=== PATIENT | male | born 1980 | race American Indian/Alaskan Native ===

== ENCOUNTER 2017-05-02 19:45 | Emergency (ER) | payer SELFPAY ==
[2017-05-02 20:42] LABS: Basophils % (Auto) 0.9 % (0.0-1.8); Eosinophils % (Auto) 1.3 % (0.0-4.3); Hematocrit 42.5 % (35.5-45.6); Mean Corpuscular HGB Conc 35 % (32-34); Mean Corpuscular Hemoglobin 36 pg (28-32); Mean Corpuscular Volume 101 fl (84-94); Platelet Count 261 K/mm3 (140-440); Red Blood Count 4.22 M/mm3 (3.65-5.03); Red Cell Distribution Width 13.4 % (13.2-15.2); White Blood Count 9.5 K/mm3 (4.5-11.0)
[2017-05-02 20:50] LABS: Alanine Aminotransferase 17 units/L (7-56); Albumin 3.5 g/dL (3.9-5); Albumin/Globulin Ratio 1.5 %; Alkaline Phosphatase 66 units/L (35-129); Anion Gap 16 mmol/L; BUN/Creatinine Ratio 12; Blood Urea Nitrogen 12 mg/dL (9-20); Calcium 8.5 mg/dL (8.4-10.2); Carbon Dioxide 28 mmol/L (22-30); Chloride 103.6 mmol/L (98-107); Glucose 95 mg/dL (75-100); Lipase 36 units/L (13-60); Potassium 3.9 mmol/L (3.6-5.0); Sodium 144 mmol/L (137-145); Total Protein 5.9 g/dL (6.3-8.2)
[2017-05-02 21:29] LABS: Bilirubin,Urine NEG (Negative); Blood,Urine NEG (Negative); Ketones,Urine NEG (Negative); Leukocyte Esterase,Urine NEG (Negative); Mucus,Urine FEW /HPF; Nitrite,Urine NEG (Negative); Protein,Urine <15 mg/dL mg/dL (Negative)
[2017-05-02 21:30] LABS: RBC,Urine < 1.0 /HPF (0.0-6.0)
--- NOTE | 2017-05-03 03:22 | Emergency Department Report ---
HPI - General Chief Complaint: Abdominal Pain Time Seen by Provider: 05/03/17 02:14 - HPI HPI: This is a 36-year-old male presents to the emergency department with complaint of some upper abdominal pain that started earlier this afternoon. It is associated with some nausea without vomiting. He has not taken anything for his symptoms prior to presentation. He was on his way to work when the abdomen started hurting so he walked here to be seen. He has a history of alcohol use but denies any this evening. He has a history of pancreatitis, hypertension. He has not had a primary care physician. No recent travel or sick contacts at home. ED Past Medical Hx - Past Medical History Hx Hypertension: Yes Hx Congestive Heart Failure: No Hx Diabetes: No Hx Asthma: No Hx COPD: No Additional medical history: "Nose bleeds", Pancreatitis - Social History Smoking Status: Current Every Day Smoker Substance Use Type: Alcohol - Medications Home Medications: Home Medications Medication Instructions Recorded Confirmed Last Taken Type Nicotine [Habitrol] 21 mg TD Q24H #15 patch 06/20/16 Unknown Rx Pantoprazole [Protonix TAB] 40 mg PO DAILY #15 tablet 06/20/16 Unknown Rx oxyCODONE /ACETAMINOPHEN [Percocet 1 tab PO Q4H PRN #30 tablet 06/20/16 Unknown Rx 5/325 mg] HYDROcodone/APAP 5-325 [[place] 1 each PO Q6HR PRN #8 tablet 05/03/17 Unknown Rx 5/325] ED Review of Systems ROS: Stated complaint: ABD PAIN Other details as noted in HPI Comment: All other systems reviewed and negative Constitutional: denies: chills, fever Eyes: denies: eye pain, eye discharge, vision change ENT: denies: ear pain, throat pain Respiratory: denies: cough, shortness of breath, wheezing Cardiovascular: denies: chest pain, palpitations Gastrointestinal: abdominal pain, nausea Genitourinary: denies: urgency, dysuria Musculoskeletal: denies: back pain, joint swelling, arthralgia Skin: denies: rash, lesions Neurological: denies: headache, weakness, paresthesias Physical Exam - Physical Exam Vital Signs: Vital Signs 05/02/17 05/02/17 20:08 20:11 Temperature 98.2 F 98.2 F Pulse Rate 102 H 103 H Respiratory 18 18 Rate Blood Pressure 126/86 126/86 O2 Sat by Pulse 99 99 Oximetry Physical Exam: GENERAL: The patient is well-developed well-nourished. HENT: Normocephalic. Atraumatic. Patient has moist mucous membranes. EYES: Extraocular motions are intact. Pupils equal reactive to light bilaterally. NECK: Supple. Trachea is midline. CHEST/LUNGS: Clear to auscultation. There is no respiratory distress noted. HEART/CARDIOVASCULAR: Regular. There is no tachycardia. There is no gallop rub or murmur. ABDOMEN: Abdomen is soft. There is some tenderness palpation to the upper quadrants of the abdomen. No guarding or rebound tenderness. Patient has normal bowel sounds. There is no abdominal distention. SKIN: Skin is warm and dry. NEURO: The patient is awake, alert, and oriented. The patient is cooperative. The patient has no focal neurologic deficits. The patient has normal speech. MUSCULOSKELETAL: There is no tenderness or deformity. There is no limitation range of motion. There is no evidence of acute injury. ED Course Vital Signs 05/02/17 05/02/17 20:08 20:11 Temperature 98.2 F 98.2 F Pulse Rate 102 H 103 H Respiratory 18 18 Rate Blood Pressure 126/86 126/86 O2 Sat by Pulse 99 99 Oximetry ED Medical Decision Making - Lab Data Result diagrams: 05/02/17 20:16 05/02/17 20:16 - Radiology Data Radiology results: report reviewed, image reviewed interpreted by me: Abdominal x-ray shows some nonspecific nonobstructive bowel gas. PROCEDURE: US ABDOMEN LIMITED TECHNIQUE: Real-time sonography in multiple planes of the gallbladder fossa and CBD with imaging of the adjacent liver, pancreas, and right kidney was performed with image documentation. CPT 16854 HISTORY: upper abd pain, hx of pancreatitis COMPARISON: No prior studies are available for comparison. FINDINGS: Liver: Normal size and echotexture with no evidence of cystic or solid mass lesion. Gallbladder: Fluid filled. No gallstones, wall thickening, pericholecystic fluid, or sonographic Solano's sign . Intrahepatic bile ducts: Normal . Extrahepatic bile ducts: Normal . Pancreas: Normal as visualized with suboptimal depiction of the pancreatic tail. Right kidney: Normal echotexture. No focal renal mass, calculus, or hydronephrosis. Other: No free fluid. IMPRESSION: Normal Examination - Medical Decision Making 36-year-old male presents with some abdominal pain to the upper abdomen that started earlier this afternoon. No nausea, vomiting, problems with bowel or bladder. Vital signs stable including being afebrile. Labs are unremarkable including normal lipase, bilirubin and LFTs. Abdominal x-ray shows nonspecific nonobstructive bowel gas. Upper abdominal ultrasound does not show any signs of cholecystitis, cholelithiasis and what is seen of the pancreas does not show any pancreatitis. He is seen resting comfortably each time he is reevaluated. He appears safe for discharge home at this time. He'll be given referrals for gastroenterology and encouraged to follow up with primary care. He will return to the ER with any worsening of his symptoms are any acute distress. - Differential Diagnosis cholecystitis, cholelithiasis, pancreatitis, gastritis Critical Care Time: No Critical care attestation.: If time is entered above; I have spent that time in minutes in the direct care of this critically ill patient, excluding procedure time. ED Disposition Clinical Impression: Abdominal pain Qualifiers: Abdominal location: upper abdomen, unspecified Qualified Code(s): R10.10 - Upper abdominal pain, unspecified Disposition: DC-01 TO HOME OR SELFCARE Is pt being admited?: No Condition: Stable Instructions: Abdominal Pain (ED) Additional Instructions: Please follow-up with your primary care physician in the next few days. I have given you a referral for a local cigar roller, Dr. Rogers, in case she would like to follow up regarding her abdominal pain. Return to the emergency Department with any worsening of your symptoms or any acute distress. You have been prescribed a medication that is sedating and therefore should not be taken prior to driving, working, and responsible for children and in no way should be mixed with alcohol of any quantity. Prescriptions: HYDROcodone/APAP 5-325 [[place] 5/325] 1 each PO Q6HR PRN #8 tablet PRN Reason: Pain Referrals: PRIMARY CAREMD [Primary Care Provider] - 3-5 Days TOMMIE ROGERS MD [Staff Physician] - 3-5 Days Time of Disposition: 04:52
--- NOTE | 2017-05-03 04:02 | Ultrasound Report ---
FINAL REPORT PROCEDURE: US ABDOMEN LIMITED TECHNIQUE: Real-time sonography in multiple planes of the gallbladder fossa and CBD with imaging of the adjacent liver, pancreas, and right kidney was performed with image documentation. CPT 48313 HISTORY: upper abd pain, hx of pancreatitis COMPARISON: No prior studies are available for comparison. FINDINGS: Liver: Normal size and echotexture with no evidence of cystic or solid mass lesion. Gallbladder: Fluid filled. No gallstones, wall thickening, pericholecystic fluid, or sonographic Solano's sign . Intrahepatic bile ducts: Normal . Extrahepatic bile ducts: Normal . Pancreas: Normal as visualized with suboptimal depiction of the pancreatic tail. Right kidney: Normal echotexture. No focal renal mass, calculus, or hydronephrosis. Other: No free fluid. IMPRESSION: Normal Examination
[2017-05-03] MEDS ORDERED: MOTRIN PO ONE (04:20)
[2017-05-03 05:11] VITALS: BP 129/74
--- NOTE | 2017-05-03 07:14 | XRay Report ---
Abdomen 2 views: History: Abdominal pain. Findings: Stool in colon. No bowel distention or wall thickening. No radiopaque calculus or abnormal calcification. Impression: Essentially negative abdomen.
== END 2017-05-03 05:10 | disposition home or self-care (01) ==
LOC: ED 19:45
DX: R11.0 Nausea (principal); R10.10 Upper abdominal pain, unspecified; I10 Essential (primary) hypertension; F17.210 Nicotine dependence, cigarettes, uncomplicated
CPT/HCPCS: 36415; 74020; 76705; 80053; 81001; 83690; 85025; 99284; G0480; 80320

== ENCOUNTER 2019-12-05 21:04 | Emergency (ER) | payer SELFPAY ==
[2019-12-05 22:13] LABS: Basophils % (Auto) 0.5 % (0.0-1.8); Eosinophils # (Auto) 0.1 K/mm3 (0.0-0.4); Eosinophils % (Auto) 1.8 % (0.0-4.3); Hematocrit 41.6 % (35.5-45.6); Hemoglobin 13.9 gm/dl (11.8-15.2); Lymphocytes # (Auto) 1.8 K/mm3 (1.2-5.4); Lymphocytes % (Auto) 22.1 % (13.4-35.0); Mean Corpuscular HGB Conc 33 % (32-34); Mean Corpuscular Volume 107 fl (84-94); Monocytes # (Auto) 0.8 K/mm3 (0.0-0.8); Monocytes % (Auto) 9.2 % (0.0-7.3); Platelet Count 230 K/mm3 (140-440); Red Blood Count 3.88 M/mm3 (3.65-5.03); Red Cell Distribution Width 13.2 % (13.2-15.2)
[2019-12-05 22:32] LABS: BUN/Creatinine Ratio 11; Blood Urea Nitrogen 11 mg/dL (9-20); Calcium 9.9 mg/dL (8.4-10.2); Hemolysis Index 15
--- NOTE | 2019-12-05 22:47 | XRay Report ---
CHEST 2 VIEWS, 12/05/2019 9:37 PM INDICATION: Chest pain COMPARISON: None FINDINGS: Support devices: None. Heart: The heart is normal in size. Lungs/pleura: The lungs are well expanded and appear clear of focal airspace disease or significant p leural effusion. Additional findings: Evaluation of bony structures demonstrates no evidence of acute bony abnormality . IMPRESSION: 1. No evidence of acute cardiopulmonary process. Signer Name: Lima Fernnado MD Signed: 12/05/2019 10:42 PM Workstation Name: [id number]
[2019-12-05] MEDS ORDERED: ALBUTEROL 2.5 MG/3 ML NEBU IH ONE (23:50)
[2019-12-05] MEDS ORDERED: IBUPROFEN 800 MG TAB PO ONE (23:50)
[2019-12-05] MEDS ORDERED: predniSONE 20 MG TAB PO ONE (23:50)
--- NOTE | 2019-12-05 23:55 | Emergency Department Report ---
ED Chest Pain HPI - General Chief Complaint: Chest Pain Stated Complaint: TROUBLE BREATHING SHARP CHEST PAIN COUGH Time Seen by Provider: 12/05/19 23:48 Source: patient Mode of arrival: Ambulatory Limitations: No Limitations - History of Present Illness Initial Comments: Mrs. Strickland is a 39-year-old -[place] male who presents for cough productive of white thick x1 week. States now with chest wall pain with cough that is described as 4/10 reproducible. With intermittent shortness of breath and wheezing. He denies history of asthma. He denies sick contacts., Symptoms are exacerbated by environmental exposure. Symptoms are relieved by nothing tried. MD Complaint: chest pain, other (cough productive ) Onset/Timin -: week(s) Onset: during exertion Pain Location: left chest, right chest Pain Radiation: none Severity: moderate Severity scale (0 -10): 4 Quality: tightness, sharp Consistency: intermittent Improves With: nothing Worsens With: inspiration, movement, other (cough) re: denies: nausea, vomting Other Symptoms: cough. denies: fever, syncope Treatments Prior to Arrival: none - Related Data Previous Rx's Medication Instructions Recorded Last Taken Type Nicotine [Habitrol] 21 mg TD Q24H #15 patch 06/20/16 Unknown Rx Pantoprazole [Protonix TAB] 40 mg PO DAILY #15 tablet 06/20/16 Unknown Rx oxyCODONE /ACETAMINOPHEN [Percocet 1 tab PO Q4H PRN #30 tablet 06/20/16 Unknown Rx 5/325 mg] HYDROcodone/APAP 5-325 [[place] 1 each PO Q6HR PRN #8 tablet 05/03/17 Unknown Rx 5/325] traMADoL [Ultram] 50 mg PO Q6HR PRN #7 tablet 09/27/19 Unknown Rx Albuterol INH(or & Nicu Only) 2 puff IH QID PRN #8.5 gram 12/06/19 Unknown Rx [ProAir HFA Inhaler] Azithromycin [Zithromax Z-ANGEL] 250 mg PO DAILY #6 tab 12/06/19 Unknown Rx Benzonatate [Tessalon Perles] 100 mg PO Q8HR PRN #30 capsule 12/06/19 Unknown Rx Ibuprofen [Motrin 800 MG tab] 800 mg PO Q8HR PRN #30 tablet 12/06/19 Unknown Rx predniSONE [Deltasone] 40 mg PO DAILY 5 Days #10 tablet 12/06/19 Unknown Rx Allergies Allergy/AdvReac Type Severity Reaction Status Date / Time venom-honey bee Allergy Angioedema Verified 05/05/16 14:26 [bee venom (honey bee)] Heart Score - HEART Score History: Slightly suspicious EKG: Normal Age: < 45 Risk factors: No known risk factors Troponin: < normal limit HEART Score: 0 ED Review of Systems ROS: Stated complaint: TROUBLE BREATHING SHARP CHEST PAIN COUGH Other details as noted in HPI Constitutional: denies: chills, fever Eyes: denies: eye pain, eye discharge, vision change ENT: congestion. denies: ear pain, throat pain Respiratory: cough, shortness of breath, wheezing Cardiovascular: chest pain Endocrine: no symptoms reported Gastrointestinal: denies: abdominal pain, nausea, vomiting, diarrhea Genitourinary: denies: urgency, dysuria Musculoskeletal: denies: back pain, joint swelling, arthralgia Skin: denies: rash, lesions Neurological: denies: headache, weakness, paresthesias Psychiatric: denies: anxiety, depression Hematological/Lymphatic: denies: easy bleeding, easy bruising ED Past Medical Hx - Past Medical History Hx Hypertension: Yes Hx Congestive Heart Failure: No Hx Diabetes: No Hx Asthma: No Hx COPD: No Additional medical history: "Nose bleeds", Pancreatitis, DVT right arm - Social History Smoking Status: Current Every Day Smoker Substance Use Type: Marijuana - Medications Home Medications: Home Medications Medication Instructions Recorded Confirmed Last Taken Type Nicotine [Habitrol] 21 mg TD Q24H #15 patch 06/20/16 Unknown Rx Pantoprazole [Protonix TAB] 40 mg PO DAILY #15 tablet 06/20/16 Unknown Rx oxyCODONE /ACETAMINOPHEN [Percocet 1 tab PO Q4H PRN #30 tablet 06/20/16 Unknown Rx 5/325 mg] HYDROcodone/APAP 5-325 [[place] 1 each PO Q6HR PRN #8 tablet 05/03/17 Unknown Rx 5/325] traMADoL [Ultram] 50 mg PO Q6HR PRN #7 tablet 09/27/19 Unknown Rx Albuterol INH(or & Nicu Only) 2 puff IH QID PRN #8.5 gram 12/06/19 Unknown Rx [ProAir HFA Inhaler] Azithromycin [Zithromax Z-ANGEL] 250 mg PO DAILY #6 tab 12/06/19 Unknown Rx Benzonatate [Tessalon Perles] 100 mg PO Q8HR PRN #30 capsule 12/06/19 Unknown Rx Ibuprofen [Motrin 800 MG tab] 800 mg PO Q8HR PRN #30 tablet 12/06/19 Unknown Rx predniSONE [Deltasone] 40 mg PO DAILY 5 Days #10 tablet 12/06/19 Unknown Rx ED Physical Exam - General Limitations: No Limitations General appearance: alert, in no apparent distress - Head Head exam: Present: atraumatic, normocephalic - Eye Eye exam: Present: normal appearance, EOMI Pupils: Present: normal accommodation - ENT ENT exam: Present: mucous membranes moist - Neck Neck exam: Present: normal inspection, full ROM. Absent: tenderness - Respiratory Respiratory exam: Present: normal lung sounds bilaterally, wheezes, chest wall tenderness (anterior chest wall ). Absent: respiratory distress, rales, rhonchi, stridor, prolonged expiratory - Cardiovascular Cardiovascular Exam: Present: regular rate, normal heart sounds - GI/Abdominal GI/Abdominal exam: Present: soft, normal bowel sounds. Absent: distended, te nderness, bruit, hernia - Rectal Rectal exam: Present: deferred - Extremities Exam Extremities exam: Present: normal inspection, full ROM, normal capillary refill. Absent: tenderness - Back Exam Back exam: Present: normal inspection, full ROM. Absent: tenderness, CVA tenderness (R), CVA tenderness (L) - Neurological Exam Neurological exam: Present: alert, oriented X3, CN II-XII intact, normal gait, reflexes normal - Psychiatric Psychiatric exam: Present: normal affect, normal mood - Skin Skin exam: Present: warm, dry, intact, normal color. Absent: rash ED Course Vital Signs 12/06/19 00:37 Pulse Rate [ 70 Bilateral] Respiratory 20 Rate [Bilateral ] MANUEL score - Manuel Score Age > 65: (0) No Aspirin use within the Past 7 Days: (0) No 3 or more CAD Risk Factors: (0) No 2 or more Angina events in past 24 hrs: (0) No Known CAD with more than 50% Stenosis: (0) No Elevated Cardiac Markers: (0) No ST Deviation Greater than 0.5mm: (0) No MANUEL Score: 0 ED Medical Decision Making - Lab Data Result diagrams: 12/05/19 21:54 12/05/19 21:54 - EKG Data EKG shows normal: sinus rhythm Rate: normal - EKG Data When compared to previous EKG there are: previous EKG unavailable Interpretation: nonspecific ST-T wave billy NSR nonspecific ST changes, ? pericarditis, no ST Elevated MN, ekg interp by ed Attending. 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 Heart: The heart is normal in size. Lungs/pleura: The lungs are well expanded and appear clear of focal airspace disease or significant pleural effusion. Additional findings: Evaluation of bony structures demonstrates no evidence of acute bony abnormality. IMPRESSION: 1. No evidence of acute cardiopulmonary process. Signer Name: Lima Fernando MD Signed: 12/05/2019 9:42 PM Workstation Name: [id number] - Medical Decision Making This is bronchitis versus CAP. Plan NSAIDs PRN chest wall pain, albuterol, prednisone, azithromycin patient will follow-up with primary care doctor in 2 to 3 days patient verbalized agreement and understanding with discharge plan patient DC'd home in stable condition at this time. Critical care attestation.: If time is entered above; I have spent that time in minutes in the direct care of this critically ill patient, excluding procedure time. ED Disposition Clinical Impression: CAP (community acquired pneumonia) Qualifiers: Laterality: right Lung location: lower lobe of lung Qualified Code(s): J18.9 - Pneumonia, unspecified organism Disposition: DC-01 TO HOME OR SELFCARE Is pt being admited?: No Does the pt Need Aspirin: No Condition: Stable Instructions: Community-acquired Pneumonia (ED), Acute Bronchitis (ED) Prescriptions: predniSONE [Deltasone] 40 mg PO DAILY 5 Days #10 tablet Ibuprofen [Motrin 800 MG tab] 800 mg PO Q8HR PRN #30 tablet PRN Reason: pain Albuterol INH(or & Nicu Only) [ProAir HFA Inhaler] 2 puff IH QID PRN #8.5 gram PRN Reason: Shortness Of Breath Benzonatate [Tessalon Perles] 100 mg PO Q8HR PRN #30 capsule PRN Reason: Cough Azithromycin [Zithromax Z-ANGEL] 250 mg PO DAILY #6 tab Referrals: UNA DE DIOS MD [Staff Physician] - 3-5 Days Forms: Work/School Release Form(ED) Time of Disposition: 01:49
[2019-12-06 01:43] VITALS: BP 128/88
== END 2019-12-06 02:08 | disposition home or self-care (01) ==
LOC: ED 21:04
DX: J18.9 Pneumonia, unspecified organism (principal); I10 Essential (primary) hypertension; F17.200 Nicotine dependence, unspecified, uncomplicated; F12.10 Cannabis abuse, uncomplicated; Z79.1 Long term (current) use of non-steroidal anti-inflammatories (NSAID); Z79.899 Other long term (current) drug therapy; Z91.030 Bee allergy status
CPT/HCPCS: 36415; 71046; 80048; 84484; 85025; 93005; 94640; 99284; J7512; 94644